=== PATIENT | female | born 2000 | race Hispanic/Latino ===

== ENCOUNTER 2023-02-04 17:50 | Emergency (ER) | payer OTHER, SELFPAY ==
[2023-02-04 18:17] VITALS: BP 119/74; PULSE 99; RESP 18; TEMP 36.9; O2SAT 100
--- NOTE | 2023-02-04 18:47 | ED.GENADULT ---
HPI - General Adult General Chief complaint: Upper Respiratory Infection <WILLIS Tiwari Last Filed: 02/05/23 02:08> Stated complaint: sore throat - no fever <WILLIS Tiwari Last Filed: 02/05/23 02:08> Time Seen by Provider: 02/04/23 18:29 <WILLIS Tiwari Last Filed: 02/05/23 02:08> Source: patient <WILLIS Tiwari Last Filed: 02/05/23 02:08> Mode of arrival: ambulatory <WILLIS Tiwari Last Filed: 02/05/23 02:08> Limitations: no limitations <WILLIS Tiwari Last Filed: 02/05/23 02:08> History of Present Illness HPI narrative: This is a 23-year-old female who presents to the ED with chief complaint of sore throat for 1 week. Also reports right-sided jaw swelling that is tender. Denies any known sick contacts. Denies trismus, drooling, voice changes. States it is uncomfortable to swallow but she is able to swallow foods and liquids. Denies recorded fevers, chills, abdominal pain, nausea, vomiting, diarrhea, cough, congestion, runny nose. Additional history reveals she is a student at [employer], immigrated from [place] 9 months ago. Unsure of vaccination status. <WILLIS Tiwari Last Filed: 02/05/23 02:08> Related Data Allergies/adverse reactions: Allergies Allergy/AdvReac Type Severity Reaction Status Date / Time No Known Allergies Allergy Verified 02/05/23 21:08 <WILLIS Tiwari Last Filed: 02/05/23 02:08> Review of Systems Review of Systems: CONSTITUTIONAL: Denies fever, chills, or sweats. EYES: Denies visual changes, redness, or discharge. ENT: See HPI CARDIOVASCULAR: Denies chest pain, palpitations, or edema. RESPIRATORY: Denies cough or dyspnea. GASTROINTESTINAL: Denies abdominal pain, nausea, vomiting, or diarrhea. GENITOURINARY: Denies dysuria or hematuria. SKIN: Denies rash or itching. MUSCULOSKELETAL: Denies back pain, joint pain, or myalgia. NEUROLOGIC: Denies headache, numbness, dizziness, or weakness. PSYCHIATRIC: Denies anxiety or depression. <Kaden Larios PA-C - Last Filed: 02/05/23 02:08> PMFSH Past Medical History Medical History: Medical History No pertinent past medical history <Kaden Larios PA-C - Last Filed: 02/05/23 02:08> Surgical History Surgical History: Surgical History (Updated 02/05/23 @ 23:49 by Juhi Campoverde PA-C) No pertinent past surgical history <Kaden Larios PA-C - Last Filed: 02/05/23 02:08> Social History Social History: Social History (Updated 02/05/23 @ 23:49 by Juhi Campoverde PA-C) Smoking status: Never smoker <Kaden Larios PA-C - Last Filed: 02/05/23 02:08> Exam Narrative: GENERAL: Well-appearing, well-nourished, and in no acute distress. HEAD: Normocephalic, atraumatic. EYES: PERRLA and EOMI. ENT: Nares clear, no rhinorrhea or epistaxis. Mucous membranes moist. Oropharynx with bilateral tonsillar hypertrophy and right-sided exudate. Well-defined edges to the plaque/exudate. No uvular deviation. No trismus. No drooling. No hot potato voice. NECK: Supple. No adenopathy or masses. CHEST: No respiratory distress. Clear to auscultation. No wheezes rales or rhonchi HEART: Regular rate and rhythm. No murmur heard. Normal peripheral pulses. ABDOMEN: Soft, nontender, nondistended, normal active bowel sounds. EXTREMITIES: Normal range of motion. No edema. SKIN: Warm, dry, no rash. NEURO: Alert and oriented x3. No focal deficits. PSYCH: Normal mood and affect. <Kaden Larios PA-C - Last Filed: 02/05/23 02:08> Course RETREADER/PA Physician Supervision This is a was performed by both a physician and an APC. I performed all aspects of the MDM as documented w/ the following additions: 23-year-old female presenting with sore throat. Strep and mono were both negative. On physical exam she has a fibrous plaque that we are unable to move remove. Patient immigr
[2023-02-04 19:00] LABS: Hematocrit 40.6 % (37.0-47.0); Hemoglobin 13.2 g/dL (12.0-15.0); Mean Corpuscular HGB Conc 32.5 g/dl (32-36); Mean Corpuscular Hemoglobin 29.1 pg (26-34); Mean Corpuscular Volume 89.6 fl (80-100); Mean Platelet Volume 9.3 fl (7.4-10.4); Platelet Count Result 266 k/mm3 (150-375); Red Blood Count 4.53 M/mm3 (4.2-5.4); Red Cell Distribution Width 13.5 % (11.5-14.5); White Blood Count 10.3 K/mm3 (4.5-10.0)
[2023-02-04 19:06] LABS: Alanine Aminotransferase 185 U/L (6-35); Albumin Level 4.3 g/dL (3.5-5.1); Alkaline Phosphatase 172 U/L (38-126); Anion Gap 6 mmol/L (8-16); Aspartate Amino Transferase 100 U/L (14-36); Bilirubin,Total 0.7 mg/dL (0.2-1.3); Blood Urea Nitrogen 8 mg/dL (7-17); Calcium 8.9 mg/dL (8.4-10.2); Carbon Dioxide 30 mmol/L (22-30); Chloride 102 mmol/L (98-107); Estimated Glomerular Filt Rate > 60; Glucose 117 mg/dL (65-110); Potassium 4.4 mmol/L (3.4-5.0); Sodium 138 mmol/L (137-145)
[2023-02-04 19:21] LABS: Strep Group A RT-PCR NOT DETECTED (Negative)
[2023-02-04 19:32] LABS: Influenza A QL RT-PCR Negative (Negative); Influenza B QL RT-PCR Negative (Negative); RSV RNA, RT-PCR Negative (Negative); SARS-CoV-2 RNA PCR Negative (Negative)
[2023-02-04 19:38] LABS: Atypical Lymphocytes Present; Band Neutrophils Percent 4 % (0-6); Lymphocytes Absolute Manual 6.79 K/mm3 (1.1-4.5); Monocytes Absolute Manual 0.92 K/mm3 (0.1-0.90); Monocytes Percent Manual 9 % (3-9); Neutrophils Absolute Manual 2.57 K/mm3 (1.7-7.2); Neutrophils Percent Manual 21 % (46-73); Platelet Estimate Adequate (Adequate); Total Cells Counted 100
[2023-02-04 19:39] LABS: Schistocytes None Seen (NORMAL)
[2023-02-04 20:08] LABS: Monoscreen Negative (Negative); Negative Monotest Control Negative (Negative); Positive Monotest Control Positive (Positive)
[2023-02-04] MEDS: CLINDAMYCIN HCL 150 MG CAP 300 MG PO (21:25)
[2023-02-04] MEDS: ERYTHROMYCIN 250 MG TABLET 500 MG PO (21:25)
[2023-02-04 21:45] VITALS: BP 120/74; PULSE 94; RESP 16; O2SAT 98
[2023-02-04] MEDS: TETANUS,DIPHTHERIA,AC PERTUSSIS ADULT (0.5 ML) BOOSTRIX IM (22:05)
--- NOTE | 2023-02-04 22:11 | PC.NURSE ---
e-swab for diptheria testing obtained on 02/04/23 at 2208 and sent to lab
== END 2023-02-04 22:23 | disposition home or self-care (01) ==
PROVIDERS: Emergency Provider Physician Assistant
DX: J02.9 Acute pharyngitis, unspecified (principal); Z20.822 Contact with and (suspected) exposure to COVID-19; Z23 Encounter for immunization
CPT/HCPCS: 36415; 80053; 85025; 86308; 86648; 86774; 87070; 87077; 87186; 87205; 87637; 87651; 90471; 90715; 99283; A9270

== ENCOUNTER 2023-02-05 20:39 | Emergency (ER) | payer OTHER, SELFPAY ==
[2023-02-05 20:52] VITALS: BP 116/76; PULSE 98; RESP 20; TEMP 36.3; O2SAT 100
--- NOTE | 2023-02-05 22:50 | ED.GENADULT ---
HPI - General Adult General Chief complaint: Recheck/Abnormal Lab/Rx <WILLIS Perez Last Filed: 02/06/23 03:22> Stated complaint: return for further testing <WILLIS Perez Last Filed: 02/06/23 03:22> Time Seen by Provider: 02/05/23 21:02 <WILLIS Perez Last Filed: 02/06/23 03:22> Source: patient and old records reviewed <WILLIS Perez Last Filed: 02/06/23 03:22> Mode of arrival: ambulatory <WILLIS Perez Last Filed: 02/06/23 03:22> Limitations: no limitations <WILLIS Perez Last Filed: 02/06/23 03:22> History of Present Illness HPI narrative: Patient is a 23-year-old female who presents the ED for further testing of pharyngitis/tonsillitis. Patient was seen in the ED yesterday for sore throat. She tested negative for strep, mono, influenza a/B, COVID, RSV. She did recently immigrated from [place] and is unsure of vaccination status. There was concern for possible diphtheria given plaque-like appearance to posterior pharynx overlying R tonsil. Patient was started on Augmentin and erythromycin, given ENT information for follow-up. Patient was told to return to the ED today for further testing/respiratory pathogen panel per [facility] guidelines/recommendations. Patient reports continued sore throat. She reports discomfort with swallowing, but denies difficulty swallowing or breathing. Able to tolerate p.o. intake. No drooling, trismus, voice changes, nausea, vomiting, fevers, rash. <WILLIS Perez Last Filed: 02/06/23 03:22> Related Data Allergies/adverse reactions: Allergies Allergy/AdvReac Type Severity Reaction Status Date / Time No Known Allergies Allergy Verified 02/05/23 21:08 <WILLIS Perez Last Filed: 02/06/23 03:22> Review of Systems Review of Systems: CONSTITUTIONAL: Denies fever, chills, or sweats. ENT: See HPI. CARDIOVASCULAR: Denies chest pain. RESPIRATORY: Denies dyspnea. GASTROINTESTINAL: Denies nausea, vomiting. SKIN: Denies rash or itching. NEUROLOGIC: Denies headache, numbness, or weakness. <Juhi Campoverde PA-C - Last Filed: 02/06/23 03:22> All systems reviewed & are unremarkable except as noted in HPI and below <Juhi Campoverde PA-C - Last Filed: 02/06/23 03:22> [facility] Past Medical History Medical History: Medical History No pertinent past medical history <Juhi Campoverde PA-C - Last Filed: 02/06/23 03:22> Surgical History Surgical History: Surgical History (Updated 02/05/23 @ 23:49 by Juhi Campoverde PA-C) No pertinent past surgical history <Juhi Campoverde PA-C - Last Filed: 02/06/23 03:22> Social History Social History: Social History (Updated 02/05/23 @ 23:49 by Juhi Campoverde PA-C) Smoking status: Never smoker <Juhi Campoverde PA-C - Last Filed: 02/06/23 03:22> Exam Narrative: GENERAL: Well appearing, obese, non-toxic, in no acute distress. HEAD: Normocephalic, atraumatic. ENT: Posterior pharynx erythema. Tonsillar enlargement bilaterally, right greater than left. There is a yellow/robins plaque-like region on right tonsil, exudate vs emergence of tonsillar stone attempting to protrude out. Uvula remains midline. No protrusion of soft palate on either side to suggest peritonsillar abscess. MMs moist. Patient tolerating secretions. No trismus, stridor, hot potato voice. NECK: Supple. No adenopathy, no masses. No bull neck. RESPIRATORY: Airway patent, respirations nonlabored. Clear to auscultation bilaterally, no rales, rhonchi, wheezing. CARDIOVASCULAR: Regular rate and rhythm without murmurs, rubs, or gallops. Radial pulses 2+ and equal bilaterally. MUSCULOSKELETAL: Moves all extremities. Strength/ROM intact without gross deformities. SKIN: Warm, dry, normal color. No rashes. NEURO: A&O X3. Speech clear.
[2023-02-05] MEDS: methylPREDNISolone SOD SUCC 125 MG VIAL IM (23:04)
[2023-02-05] MEDS: LIDOCAINE HCL 2% VISC SOLN 15 ML UDC PO (23:07)
[2023-02-05] MEDS: IBUPROFEN 600 MG TABLET PO (23:54)
[2023-02-05 23:56] VITALS: BP 112/78; PULSE 88; RESP 16; O2SAT 100
[2023-02-11 20:00] LABS: Adenovirus DNA Not Detected (Not Detected); Chlamydophila pneumoniae Not Detected (Not Detected); Coronavirus 229E Not Detected (Not Detected); Coronavirus HKU1 Not Detected (Not Detected); Coronavirus NL63 Not Detected (Not Detected); Coronavirus OC43 Not Detected (Not Detected); Human Metapneumovirus Not Detected (Not Detected); Human Parainfluenza Virus 1 Not Detected (Not Detected); Human Parainfluenza Virus 2 Not Detected (Not Detected); Human Parainfluenza Virus 3 Not Detected (Not Detected); Human Parainfluenza Virus 4 Not Detected (Not Detected); Human RSV B Not Detected (Not Detected); Influenza A Not Detected (Not Detected); Influenza B Not Detected (Not Detected); Mycoplasma pneumoniae Not Detected (Not Detected); Rhinovirus/Enterovirus Not Detected (Not Detected)
== END 2023-02-05 23:57 | disposition home or self-care (01) ==
PROVIDERS: Emergency Provider Physician Assistant
DX: J03.90 Acute tonsillitis, unspecified (principal)
CPT/HCPCS: 36415; 87633; 96372; 99199; 99283; A9270; J2930